=== PATIENT | male | born 1950 | race Caucasian/White ===

== ENCOUNTER 2020-12-26 05:37 | Outpatient (CLI) | payer MEDICARE, OTHER ==
[~2020-12-26] VITALS: Ht 170.2 cm; Wt 91.7 kg
[2020-12-26] MEDS ORDERED: ATOR80TA76 PO (12:04)
[2020-12-26] MEDS ORDERED: FAMO-119 PO (12:04)
[2020-12-26] MEDS ORDERED: ASPI-1238 PO (12:04)
[2020-12-26] MEDS ORDERED: METF500S5 PO (12:04)
[2020-12-26] MEDS ORDERED: RT-ALBUINH IH (12:04)
[2020-12-26] MEDS ORDERED: ALBU2.5V4 INH (12:04)
[2020-12-26] MEDS ORDERED: LISI40TA9 PO (12:04)
[2020-12-26] MEDS ORDERED: TIOT4MIS2 IH (12:04)
[2020-12-26] MEDS ORDERED: HYDR12.56 PO (12:04)
[2020-12-26] MEDS ORDERED: METO50TA15 PO (12:04)
[2020-12-26] MEDS ORDERED: SENN-36 PO (12:04)
== END 2020-12-26 12:28 | disposition home or self-care (01) ==
LOC: PREOP 05:37
PROVIDERS: ATTEND Surgery
DX: Z01.818 Encounter for other preprocedural examination (principal); K43.2 Incisional hernia without obstruction or gangrene

== ENCOUNTER 2021-01-01 11:35 | Day surgery (SDC) | payer MEDICARE, OTHER ==
--- NOTE | 2020-12-25 06:42 | HISTORY AND PHYSICAL ---
DATE OF SERVICE: DATE OF ADMISSION: 01/01/2021. HISTORY OF PRESENT ILLNESS: The patient is a 70-year-old male, who was referred over to us for an incisional hernia. He reports that around 05/2020, he did have a myocardial infarction and was transferred to [facility] in [place], [place], where he underwent a triple coronary artery bypass graft. He reports that two months ago, he started developing pain as well as a bulge in the epigastric region on the inferior portion of the incision. He reports that this has gotten larger over time and has become painful. He denies any diarrhea, constipation or any other issues. PAST MEDICAL HISTORY: Coronary artery disease, chronic obstructive pulmonary disease, hypercholesterolemia, type 2 diabetes, hypertension, gastroesophageal reflux disease, and myocardial infarction in 05/2020. PAST SURGICAL HISTORY: Right shoulder arthroscopy, left knee arthroscopy, cholecystectomy, and coronary artery bypass graft x3 vessel in 05/2020. ALLERGIES: IVAN SEEDS, CASE and SUMAC. MEDICATIONS: Senokot 8.6 mg daily as needed, metoprolol 50 mg half tablet b.i.d., Plavix 75 mg daily, aspirin 81 mg daily, Pepcid 20 mg b.i.d., lisinopril 10 mg daily, vitamin D3 25 mcg daily, metformin 500 daily, atorvastatin 80 mg daily, albuterol sulfate 2.5 mg/3 mL q.6 hours p.r.n., albuterol sulfate HFA 108 mcg one puff four times daily, and Spiriva Respimat 2.5 mcg two puffs b.i.d. SOCIAL HISTORY: Positive for tobacco, smoke for 30 plus pack years, negative for alcohol. FAMILY HISTORY: Father, lung cancer, liver cancer; brother, stroke, myocardial infarction, and colon cancer. REVIEW OF SYSTEMS: This is a well-nourished male in no acute distress. He is not experiencing any shortness of breath or difficulty breathing. No chest pain, palpitations or diaphoresis. No nausea or vomiting. He does report abdominal pain in the epigastric region associated with bulging. He denies any diarrhea or constipation. No red blood per rectum. No dark tarry stools. No fever or chills. No recent overt weight loss. All other review of systems negative. PHYSICAL EXAMINATION: VITAL SIGNS: Blood pressure 165/88. Current weight is 202.3 pounds and 5 feet 7 inches. CHEST: Clear. Good breath sounds bilaterally. HEART: Regular and no murmurs. EXTREMITIES: No lower extremity edema. Negative Homans sign. HEENT: No scleral icterus. NECK: No cervical lymphadenopathy. ABDOMEN: Soft and nondistended. There is an incisional hernia from previous incision near the epigastric region. It is reducible; however, is painful to palpation. SKIN: Warm, dry and pink. NEUROLOGIC: Awake, alert and oriented x3. ASSESSMENT AND PLAN: A 70-year-old male with a ventral abdominal incisional hernia. At this time, we will recommend proceeding with open ventral abdominal incisional hernia repair with mesh. Once we have obtained cardiac clearance, we are going to stop his anticoagulation. Once we have received clearance, we will schedule him for an open ventral abdominal incisional hernia repair with mesh. Job ID: [id number] DocumentID: [id number] Dictated Date: 12/23/2020 09:02:39 Bookseamer Blindstitch Date: 12/23/2020 11:23:05 Dictated By: MARTINA LLOYD APRN
[~2021-01-01] VITALS: Ht 170.2 cm; Wt 91.7 kg
[2021-01-01] VITALS (10 sets, daily range): BP systolic 118–153; BP diastolic 80–98
[~2021-01-01 11:35] MED LIST: ALBU2.5V4 INH; ASPI-1238 PO; ATOR80TA76 PO; FAMO-119 PO; HYDR12.56 PO; LISI40TA9 PO; METF500S5 PO; METO50TA15 PO; RT-ALBUINH IH; SENN-36 PO; TIOT4MIS2 IH
[2021-01-01] MEDS ORDERED: LIDOCAINE/EPI 1%-1:100,000 (XYLOCAINE) 20ML ONE (12:00)
[2021-01-01] MEDS ORDERED: ceFAZolin 2 GM IV Premixed 50 ML IV ONE (12:00)
[2021-01-01] MEDS: LACTATED RINGERS 1,000 ML IV PRN ×2 (12:10→15:45)
[2021-01-01] MEDS ORDERED: proPOfol 200 MG/20 ML (DIPRIVAN) VIAL IV ONE (12:45)
[2021-01-01] MEDS ORDERED: MIDAZOLAM 2 MG/2 ML (VERSED) VIAL ONE (12:45)
[2021-01-01] MEDS ORDERED: ROCURONIUM 10 MG/ML 5 ML SYRINGE IV ONE (12:45)
[2021-01-01] MEDS ORDERED: ONDANSETRON 4 MG/2 ML (SDV) Z0FRAN ONE (12:45)
[2021-01-01] MEDS ORDERED: LIDOCAINE PF 2% 5 ML (XYLOCAINE) VIAL ONE (12:45)
[2021-01-01] MEDS ORDERED: SUCCINYLCHOLINE INJ 100 MG/5 ML SYR/VIAL ONE (12:45)
[2021-01-01] MEDS ORDERED: fentaNYL INJ 100 MCG/2 ML AMP ONE (12:46)
--- NOTE | 2021-01-01 12:51 | Progress Note-Pre Operative ---
Pre-Operative Progress Note H&P Reviewed The H&P was reviewed, patient examined and no changes noted. Date Seen by Provider: January 01, 2021 Time Seen by Provider: 12:50 Date H&P Reviewed: January 01, 2021 Time H&P Reviewed: 12:45 Pre-Operative Diagnosis: Ventral abdominal incisional hernia MARTINA LLOYD APRN January 01, 2021 12:51
[2021-01-01] MEDS ORDERED: HYDR-3817 PO (12:52)
--- NOTE | 2021-01-01 12:53 | Discharge Inst-Surgical ---
D/C Lap Instructions-KIDO Reconcile Patient Problems Problems Reviewed?: Yes New, Converted, or Re-Newed RX: RX on Chart Follow Up Appt in 2 weeks Activity as tolerated No driving for 24 hours No driving while on pain medications Incentive Spirometry use every 2 hours while awake Regular Diet Symptoms to Report: Fever over 101 degree F, Nausea/Vomiting Infection Signs and Symptoms to report: Increased redness, Foul odor of wound, Increased drainage Bathing instructions: May shower Operative Area Clean/Dry; Keep incision clean/dry If any problems/questions: Contact your physician or go to Emergency Room MARTINA LLOYD APRN January 01, 2021 12:53
[2021-01-01] MEDS ORDERED: morphine INJ 10 MG/ML 1ML (SYR OR VIAL) IVP PRN (13:00)
[2021-01-01] MEDS ORDERED: ACETAMINOPHEN 325 MG TABLET PO PRN (13:00)
[2021-01-01] MEDS ORDERED: HYDROcodone/APAP 5 MG/325 MG (LORTAB) TAB PO ONE (13:00)
[2021-01-01] MEDS ORDERED: ONDANSETRON 4 MG/2 ML (SDV) Z0FRAN IVP PRN ×2 (13:00→16:15)
[2021-01-01] MEDS ORDERED: NEOSTIGMINE 3 MG/3 ML VIAL ONE (15:38)
[2021-01-01] MEDS ORDERED: GLYCOPYRROLATE 0.2 MG/ML (ROBINUL) 2 ML VIAL ONE (15:38)
--- NOTE | 2021-01-01 15:51 | Progress Note-Post Operative ---
Post-Operative Progess Note Surgeon (s)/Sales Host (s) Surgeon ANDREA HUNTLEY MD Sales Host: shashi samuel [employer] Pre-Operative Diagnosis Ventral abdominal incisional hernia Post-Operative Diagnosis same 6x6cm Procedure & Operative Findings Date of Procedure 01/01/21 Procedure Performed/Findings open repair ventral abd inc hernia with mesh. Anesthesia Type get Estimated Blood Loss Estimated blood loss (mL): minimal Specimens/Packing Specimens Removed hernia sac ANDREA HUNTLEY MD January 01, 2021 15:51
[2021-01-01] MEDS ORDERED: HYDROmorphone 2 MG/ML VIAL (DILAUDID) IV ONE (16:15)
[2021-01-01] MEDS ORDERED: HYDROcodone/APAP 5 MG/325 MG (LORTAB) TAB ONE (16:40)
--- NOTE | 2021-01-01 22:01 | OPERATIVE REPORT ---
DATE OF SERVICE: 01/01/2021 ATTENDING PRIMARY CARE PHYSICIAN: Dr. Hart at [facility] [place]. PREOPERATIVE DIAGNOSIS: Ventral abdominal incisional hernia. POSTOPERATIVE DIAGNOSES: Ventral abdominal incisional hernia with the fascial defect, 6 x 6 cm in size. PROCEDURE: Ventral abdominal incisional hernia repair with mesh. SURGEON: Andrea Huntley MD. NIGHT TIME BABYSITTER: Yordan Landry APRN. ANESTHESIA: General endotracheal. ESTIMATED BLOOD LOSS: Minimal. FINDINGS: Epigastric ventral abdominal incisional hernia from a previous midline thoracotomy incision with extension into the abdomen from a previous open-heart surgery. DISPOSITION: The patient tolerated the procedure well. INDICATIONS: The patient is a 70-year-old male who developed chest pain and discomfort and was found to have multivessel coronary artery disease and underwent coronary artery bypass grafting in 06/2020. He states that he developed a bulge in the epigastric region along the distal end of the midline thoracotomy incision, which grew larger in size over time. The patient also does have central adiposity and significant size abdomen. Upon examination, he was found to have an epigastric ventral abdominal incisional hernia, which was reducible; however, tender to palpation. DESCRIPTION OF PROCEDURE: The patient was brought to the operating room, laid supine on the table. After adequate IV pain and sedative medications and general endotracheal intubation, the abdomen was prepped and draped in standard surgical fashion. A 0.5% Marcaine with epinephrine was used to anesthetize overlying skin lesion. A skin incision vertically was then made using a 15 blade. The hernia sac was then dissected out using Metzenbaum scissors as well as electrocautery to the fascial base circumferentially. The hernia sac was then opened using Metzenbaum scissors. The hernia sac was then fully excised under direct visualization using electrocautery. The fascial defect was measured out to be 6 x 6 cm and a 15.2 round coated polypropylene mesh was placed into the defect and sutured concentrically to the fascia using 0 Prolene interrupted sutures in a concentric manner. Good hemostasis was observed. The subcutaneous tissue was reapproximated using 3-0 Vicryl interrupted sutures and the skin was closed using 4-0 Monocryl running subcuticular suture. Wound was then cleaned and covered with Dermabond. The hernia site was then covered with tonsil sponges followed by 4 x 4 gauze followed by large Op-Site and an abdominal binder. The patient tolerated the procedure well. We will start IV normal pain medication as well as a clear liquid diet. Once he is tolerating clears, has good pain control with oral pain medications, he is ambulating well, we will discharge him home. He will be instructed to do no heavy lifting or exertion for the next six weeks and to also wear the abdominal binder, both day and night to decrease the risk of reoccurrence. Job ID: [id number] DocumentID: [id number] Dictated Date: 01/01/2021 16:04:06 Gaming Cashier Date: 01/01/2021 22:00:48 Dictated By: ANDREA HUNTLEY MD
--- NOTE | 2021-01-02 09:56 | Anesthesia-General Post-Op ---
General Patient Condition Mental Status/LOC: Same as Preop Cardiovascular: Satisfactory Nausea/Vomiting: Absent Respiratory: Satisfactory Pain: Controlled Complications: Absent Post Op Complications Complications None Follow Up Care/Instructions Patient Instructions None needed. Anesthesia/Patient Condition Patient Condition Patient is doing well, no complaints, stable vital signs, no apparent adverse anesthesia problems. No complications reported per nursing. D/C home per [facility] Criteria: Yes RAYSA SAHU CRNA January 02, 2021 09:56
== END 2021-01-01 17:50 ==
LOC: SDC 11:35
PROVIDERS: ATTEND Surgery
DX: K43.2 Incisional hernia without obstruction or gangrene (principal); I25.10 Atherosclerotic heart disease of native coronary artery without angina pectoris; I10 Essential (primary) hypertension; J44.9 Chronic obstructive pulmonary disease, unspecified; F17.210 Nicotine dependence, cigarettes, uncomplicated; K21.9 Gastro-esophageal reflux disease without esophagitis; E11.9 Type 2 diabetes mellitus without complications; I25.2 Old myocardial infarction; E78.00 Pure hypercholesterolemia, unspecified; Z96.611 Presence of right artificial shoulder joint; Z79.899 Other long term (current) drug therapy; Z79.82 Long term (current) use of aspirin; Z79.84 Long term (current) use of oral hypoglycemic drugs; Z95.1 Presence of aortocoronary bypass graft; Z90.49 Acquired absence of other specified parts of digestive tract; Z98.890 Other specified postprocedural states; Z80.1 Family history of malignant neoplasm of trachea, bronchus and lung; Z80.0 Family history of malignant neoplasm of digestive organs
CPT/HCPCS: 49560; 49568; 82947; 87081; C1781

== ENCOUNTER → 2023-04-26 | Outpatient (CLI) | payer OTHER ==
[~2023-04-26] MED LIST changes: +ALBU8.5H6 IH; +HYDR-3817 PO; -METF500S5 PO; +METF500S7 PO; -RT-ALBUINH IH
--- NOTE | 2023-04-26 15:13 | Diagnostic Imaging Report ---
EXAMINATION: CT abdomen without intravenous contrast. TECHNIQUE: Multiple contiguous axial images were obtained through the abdomen without the administration of intravenous contrast. All CT scans use one or more of the following dose optimizing techniques: automated exposure control, MA and/or KvP adjustment based on patient size and exam type or iterative reconstruction. HISTORY: Abdominal pain, hernia COMPARISON: None available. FINDINGS: Lung bases: Bibasilar dependent atelectasis. Solid organs: The liver is normal. The gallbladder is surgically absent. There is no biliary ductal dilation. Pancreas is normal. Spleen is normal. There are are bilateral adrenal nodules measuring up to 1.9 cm on the left and 2.0 cm on the right with Hounsfield units less than 10 compatible with adenomas. The kidneys are normal without hydronephrosis. Bowel: No bowel obstruction. Peritoneum: There is no intraperitoneal free fluid or free air. No suspicious lymphadenopathy. Vasculature: Calcification of the aorta without aneurysm. Musculoskeletal: Degenerative changes of the spine without suspicious osseous lesion or compression fracture. There is an upper abdominal ventral hernia through an 8.8 cm defect. This is located just inferior to the sternum and contains fat as well as a loop of the colon without evidence of obstruction. IMPRESSION: 1. No acute abnormality in the abdomen. 2. Upper abdominal ventral hernia through an 8.8 cm defect just inferior to the sternum. Dictated by: Dictated on workstation # [id number]
== END ==
LOC: RAD FS 13:37
DX: K43.9 Ventral hernia without obstruction or gangrene (principal)
CPT/HCPCS: 74150